=== PATIENT | male | born 1980 | race Caucasian/White ===

== ENCOUNTER 2020-09-25 15:27 | Observation (INO) ==
--- OUTSIDE RECORDS SUMMARY | 2020-09-25 15:38 | External Medical Summary | Continuity of Care Document ---
:1980 Author Name Jud Barlow, Provider Address Unavailable Unavailable , Care Team Providers Name Role Phone aMry Oconnell Unavailable [email or web address] MARY PARKER Unavailable Unavailable Problems Active medical history not documented Allergies and Adverse Reactions Allergy history not documented Medications Medications not documented Procedures Procedures not documented Immunizations Immunizations not documented Plan of Treatment Planned Observations Planned Goals not documented Results No Known Results Results not documented Encounters Appointment; Mary Parker CRNP 22-Feb-2018 9:45 Encounter Diagnosis: Problem not documented
[2020-09-25] MEDS ORDERED: KETOROLAC TROMETHAMINE 15 MG/ML VIAL ONE (16:23)
[2020-09-25] MEDS ORDERED: MoRPHine SULFATE 4 MG/ML 1 ML CARP\\VIAL ONE (16:23)
[2020-09-25] MEDS ORDERED: ONDANSETRON INJ 2 MG/ML 2 ML VIAL IV STA (17:26)
[2020-09-25] MEDS ORDERED: HYDROmorphone INJ 0.5 MG/0.5 ML SYR IV STA (17:26)
--- NOTE | 2020-09-25 17:32 | Emergency Department Note ---
ED Visit Note Differential Diagnosis includes but is not limited to ischemic Stroke, hemorrhagic stroke, bells palsy, mass, neoplasm, migraine he Differential diagnosis includes etiologies such as benign positional vertigo, dehydration, hypovolemia, anemia, tumor, infection, hypoglycemia, electrolyte abnormalities, cardiac sources, intracerebral event, toxicologic, neurological, as well as others were entertained. GENERAL: Sitting up in bed, alert, well appearing, well nourished, no distress, non-toxic EYE EXAM: normal conjunctiva. [PERRL and EOM's grossly intact.] OROPHARYNX: no exudate, no erythema, lips, buccal mucosa, and tongue normal and mucous membranes are moist NECK: supple, no nuchal rigidity, no adenopathy, non-tender LUNGS: Clear to auscultation. Normal chest wall mechanics HEART: no murmurs, S1 normal and S2 normal ABDOMEN: abdomen soft, non-tender, normo-active bowel sounds, no masses, no rebound or guarding. BACK: Back is symmetrical on inspection and there is no deformity, no midline tenderness, no CVA tenderness. SKIN: no rashes and no bruising UPPER EXTREMITIES: upper extremities are grossly normal. LOWER EXTREMITIES: No pitting edema. NEURO EXAM: Normal sensorium, cranial nerves II-XII [grossly] intact, normal speech, no [gross] weakness of arms, no [gross] weakness of legs. [No drift. Finger to nose intact. Gross sensation intact.]
[2020-09-25] MEDS ORDERED: MoRPHine SULFATE 4 MG/ML 1 ML CARP\\VIAL IV STA (18:23)
[2020-09-25 19:23] LABS: Alanine Aminotransferase 43 U/L (12-78); Albumin Globulin Ratio 1.3 (0.9-2); Albumin Level 4.8 gm/dl (3.4-5.0); Alkaline Phosphatase 53 U/L (45-117); Aspartate Aminotransferase 20 U/L (15-37); BUN Creatinine Ratio 12.7 (10-20); Blood Urea Nitrogen 20 mg/dl (7-18); Calcium 9.5 mg/dl (8.5-10.1); Carbon Dioxide 27 mmol/L (21-32); Chloride 99 mmol/L (98-107); Est GFR (African American) 63.9; Est GFR (Non-African American) 55.1; Globulin 3.7 gm/dl (2.5-4.0); Glucose 107 mg/dl (70-99); Lipase 90 U/L (73-393); Sodium 133 mmol/L (136-145); Total Protein 8.5 gm/dl (6.4-8.2)
[2020-09-25 19:47] LABS: Appearance Urine Clear (Clear); Bacteria Urine Automated Negative (Negative); Bilirubin Urine Negative (Negative); Blood Urine 3+ (Negative); Color Urine Yellow; Epithelial Cell Urine Auto 0-5 /lpf (0-5); Glucose Urine UA Negative (Negative); Ketones Urine 1+ (Negative); Leukocyte Esterase Urine Negative (Negative); Nitrite Urine Negative (Negative); Protein Urine 1+ (Negative); RBC Urine Automated >30 /hpf (0-4); Specific Gravity Urine 1.017 (1.000-1.030); Urobilinogen Urine Negative (Negative)
--- NOTE | 2020-09-25 19:50 | History & Physical Report ---
Date of Service September 25, 2020 Assessment & Plan (1) Renal colic on left side: (2) Hx of renal calculi: Patient has history significant for renal calculi, requiring urological procedures in the past History of cystinuria/cystine kidney stones Currently does not follow-up with any urologist, as did not have any issues more recently Did pass spontaneously renal stone about a month ago Today presents with emesis, with blood cell count of 19,000, creatinine elevated at 1.5 and significant pain in left lower abdominal quadrant/groin CT scan showing 7 mm left ureteral stone UA unremarkable, no bacteria no nitrites, positive for blood Patient denies any gross hematuria Antibiotics not started in the ED given UA without any bacteria Pt also has significant allergies to several antibiotics Pt does not have any fevers, chills, blood pressure is actually elevated, patient does not appear septic We will obtain urine culture Continue IV fluids, strain urine N.p.o. after midnight, routine urology consult tomorrow AM Discussed Flomax with the patient, at this time he is not interested in any new medications Pain management (3) ELYLN (generalized anxiety disorder): - cont. home buspar (4) Hypertension: - cont. amlodipine, hold losartan/HCTZ given JADA (elev. Cr) JADA Cr 1.5 Likely secondary to above/ renal stone Continue IV fluids, recheck BMP in the morning, try to avoid NSAIDs and any other nephrotoxic agents (5) Tobacco use: Patient says he quit smoking 1 week ago Currently using Chantix, will continue (6) Dyslipidemia: Hold home statin for now, if nausea resolves, plan to resume -plan to resume on discharge DVT ppx: SCDs Code: Full History of Present Illness Chief Complaint: left lower quadrant abd. pain, kidney stone Primary Care Provider: Gómez Narayanan MD Mr. Montoya is a 40-year-old gentleman with history of kidney stones, hypertension, ELLYN, tobacco use, who presents with left lower quadrant abdominal pain secondary to kidney stone. Patient states that he passed a kidney stone about a month ago, which was uneventful, however he has significant history of kidney stones, requiring procedures in the past. At this moment he reports he does not follow with urologist as he did not have any major issues more recently. Patient reports that usually if he passes a stone he feels better, and does not need to come to the hospital however he reports that when he starts to feel sick and throw up, that is when he needs to come in for further evaluation. Patient says that he was vomiting this afternoon. Labs obtained in the ED, shows creatinine of 1.5, white blood cell count of 19,000, UA unremarkable. CT showing 7 mm left ureteral stone. Patient was given IV fluids and pain medications in the ED. Given UA was unremarkable, antibiotics were not started. Patient also denies any fevers or chills, denies any difficulty with urination, denies any blood in the urine or cloudy pussy urine. Patient has significant allergies to multiple antibiotics with history of airway swelling. Patient has a history of tobacco use, however quit smoking about 1 week ago, reports this is his fifth trial, but doing better now on Chantix. Patient otherwise denies any difficulty breathing, shortness of breath, cough, chest pain. Allergies Allergy/AdvReac Type Severity Reaction Status Date / Time amoxicillin Allergy Unknown STOP Verified 09/25/20 18:04 BREATHING Bactrim Allergy Unknown STOP Verified 01/07/14 06:36 BREATHING cephalexin Allergy Unknown STOP Verified 09/25/20 18:04 BREATHING furosemide Allergy Unknown LISTED PER Verified 09/25/20 18:04 MD ORDER Penicillins Allergy Unknown RASH Verified 09/25/20 18:04 sulfamethoxazole Allergy Unknown STOP Verified 09/25/20 18:04 BREATHING trimethoprim Allergy Unknown STOP Verified 09/25/20 18:04 BREATHING vancomycin Allergy Unknown STOP Verified 09/25/20 18:04 BREATHING Home Medications Medication Instructions Recorded Confirmed Type amlodipine 10 mg PO PM #0 12/25/11 09/25/20 History acetaminophen [Tylenol Extra 1,500 mg PO Q6H PRN 09/25/20 09/25/20 History Strength] buspirone 10 mg PO BID 09/25/20 09/25/20 History gabapentin 300 mg PO TID 09/25/20 09/25/20 History lisinopril-hydrochlorothiazide 1 tab PO PM 09/25/20 09/25/20 History rosuvastatin 20 mg PO PM 09/25/20 09/25/20 History varenicline [Chantix Continuing 1 mg PO BID 09/25/20 09/25/20 History Month Box] Past Med/Surg History Medical History (Updated 09/25/20 @ 20:18 by Chinedu Ceballos MD) Cystinuria Degenerative disc disease, cervical Dyslipidemia Exostosis of femur ELLYN (generalized anxiety disorder) Hx of renal calculi Hypertension Irritable bowel syndrome (IBS) PFO (patent foramen ovale) Tobacco use Ureteral stent displacement Surgical History (Updated 09/25/20 @ 19:55 by Chinedu Ceballos MD) H/O arthroscopy of right knee H/O vasectomy Family History (Updated 09/25/20 @ 19:58 by Chinedu Ceballos MD) Mother Valvular heart disease Hypertension Lupus Father Hypertension Brother ADD (attention deficit disorder) Anxiety Social History (Updated 09/25/20 @ 19:47 by Chinedu Ceballos MD) Smoking Status: Former smoker Tobacco Type: Cigarettes Smoking End Date: quit 1 week ago 08/2020; Hx Alcohol Use: No Review of Systems Review of Systems: All systems reviewed & are unremarkable except as noted in HPI & below Constitutional: no fever and no chills Eyes: no problem reported Ear, Nose, Mouth, Throat: no problem reported Respiratory: no cough and no dyspnea Cardiovascular: no chest pain, no palpitations and no edema Gastrointestinal: + abdominal pain (left lower quadrant/ froin), + nausea and + vomiting; no diarrhea/loose stools Genitourinary: no dysuria Musculoskeletal: no problem reported Integumentary: no problem reported Neurologic: no problem reported Psychiatric: no problem reported Endocrine: no problem reported Hematologic / Lymphatic: no problem reported Allergy / Immunological: no problem reported Physical Exam Constitutional: WD/WN, vitals as above Eyes: PERRL, conjunctivae normal, anicteric sclerae ENMT: external ear and nose normal, oropharynx normal Neck: normal visual inspection Respiratory: normal respiratory effort, lungs clear to auscultation Cardiovascular: RRR, no murmur, no edema Chest (Breasts): Chest: normal inspection of chest Gastrointestinal (Abdomen): Inspection/Auscultation: abdomen normal to inspection and normal bowel sounds; no abdominal edema Percussion/Palpation: + abdomen tender (left lower quadrant) and abdomen soft; no guarding and abdomen not rigid Musculoskeletal: no cyanosis or clubbing, extremities motor strength 5/5 Head/Neck/Chest: normocephalic and head atraumatic Skin: no rashes, warm and dry Neurologic: PERRL, EOMI, accommodation nl, no face palsy, no dysarthria moves all extremities Psychiatric: A+Ox3, euthymic affect Genitourinary: no CVA tenderness Lymphatic: no lymphedema Results & Data Results & Data ([facility]) Vital Signs (Past 12 Hours) Vital Signs Pulse Resp BP Pulse Ox 09/25/20 19:04 80 18 170/112 H 98 Laboratory Results 09/25/20 09/25/20 09/25/20 Range/Units Unknown 16:26 16:26 WBC 19.85 H (4.8-10.8) K/uL RBC 5.44 (4.7-6.1) M/uL Hgb 17.3 (14.0-18.0) g/dL Hct 50.5 (42-52) % MCV 92.8 (80-100) fL MCH 31.8 (25-34) pg MCHC 34.3 (32-36) g/dL RDW Std Deviation 43.7 (36.4-46.3) fL RDW Coeff of Jose 12.9 (11.5-14.5) % Plt Count 279 (130-400) K/uL MPV 10.0 (7.4-10.4) fL Immature Gran % (Auto) 0.3 % Neut % (Auto) 88.5 % Lymph % (Auto) 6.1 % [place] % (Auto) 4.8 % Eos % (Auto) 0.2 % Baso % (Auto) 0.1 % Neut # (Auto) 17.57 H (1.4-6.5) K/uL Lymph # (Auto) 1.22 (1.2-3.4) K/uL [place] # (Auto) 0.95 H (0.11-0.59) K/uL Eos # (Auto) 0.04 (0-0.5) K/uL Baso # (Auto) 0.01 (0-0.2) K/uL Immature Gran # (Auto) 0.06 H (0.00-0.02) K/uL Sodium 133 L (136-145) mmol/L Potassium 4.0 (3.5-5.1) mmol/L Chloride 99 (98-107) mmol/L Carbon Dioxide 27 (21-32) mmol/L Anion Gap 7.0 (3-11) BUN 20 H (7-18) mg/dl Creatinine 1.57 H (0.6-1.4) mg/dl Est Cr Clr Drug Dosing Not Reportable Est GFR ( Amer) 63.9 Est GFR (Non-Af Amer) 55.1 BUN/Creatinine Ratio 12.7 (10-20) Glucose 107 H (70-99) mg/dl Calcium 9.5 (8.5-10.1) mg/dl Total Bilirubin 1.0 (0.2-1) mg/dl AST 20 (15-37) U/L ALT 43 (12-78) U/L Alkaline Phosphatase 53 (45-117) U/L Total Protein 8.5 H (6.4-8.2) gm/dl Albumin 4.8 (3.4-5.0) gm/dl Globulin 3.7 (2.5-4.0) gm/dl Albumin/Globulin Ratio 1.3 (0.9-2) Lipase 90 (73-393) U/L Urine Color Urine Appearance (Clear) Urine pH (4.5-7.5) Ur Specific [place] (1.000-1.030) Urine Protein (Negative) Urine Glucose (UA) (Negative) Urine Ketones (Negative) Urine Blood (Negative) Urine Nitrite (Negative) Urine Bilirubin (Negative) Urine Urobilinogen (Negative) Ur Leukocyte Esterase (Negative) Urine WBC (Auto) (0-5) /hpf Urine RBC (Auto) (0-4) /hpf U Hyaline Cast (Auto) (0-5) /lpf U Epithel Cells (Auto) (0-5) /lpf Urine Bacteria (Auto) (Negative) SARS-CoV-2 Ag (Rapid) Pending 09/25/20 Range/Units 16:26 WBC (4.8-10.8) K/uL RBC (4.7-6.1) M/uL Hgb (14.0-18.0) g/dL Hct (42-52) % MCV (80-100) fL MCH (25-34) pg MCHC (32-36) g/dL RDW Std Deviation (36.4-46.3) fL RDW Coeff of Jose (11.5-14.5) % Plt Count (130-400) K/uL MPV (7.4-10.4) fL Immature Gran % (Auto) % Neut % (Auto) % Lymph % (Auto) % [place] % (Auto) % Eos % (Auto) % Baso % (Auto) % Neut # (Auto) (1.4-6.5) K/uL Lymph # (Auto) (1.2-3.4) K/uL [place] # (Auto) (0.11-0.59) K/uL Eos # (Auto) (0-0.5) K/uL Baso # (Auto) (0-0.2) K/uL Immature Gran # (Auto) (0.00-0.02) K/uL Sodium (136-145) mmol/L Potassium (3.5-5.1) mmol/L Chloride (98-107) mmol/L Carbon Dioxide (21-32) mmol/L Anion Gap (3-11) BUN (7-18) mg/dl Creatinine (0.6-1.4) mg/dl Est Cr Clr Drug Dosing Est GFR ( Amer) Est GFR (Non-Af Amer) BUN/Creatinine Ratio (10-20) Glucose (70-99) mg/dl Calcium (8.5-10.1) mg/dl Total Bilirubin (0.2-1) mg/dl AST (15-37) U/L ALT (12-78) U/L Alkaline Phosphatase (45-117) U/L Total Protein (6.4-8.2) gm/dl Albumin (3.4-5.0) gm/dl Globulin (2.5-4.0) gm/dl Albumin/Globulin Ratio (0.9-2) Lipase (73-393) U/L Urine Color Yellow Urine Appearance Clear (Clear) Urine pH 7.0 (4.5-7.5) Ur Specific [place] 1.017 (1.000-1.030) Urine Protein 1+ H (Negative) Urine Glucose (UA) Negative (Negative) Urine Ketones 1+ H (Negative) Urine Blood 3+ H (Negative) Urine Nitrite Negative (Negative) Urine Bilirubin Negative (Negative) Urine Urobilinogen Negative (Negative) Ur Leukocyte Esterase Negative (Negative) Urine WBC (Auto) 1-5 (0-5) /hpf Urine RBC (Auto) >30 H (0-4) /hpf U Hyaline Cast (Auto) 1-5 (0-5) /lpf U Epithel Cells (Auto) 0-5 (0-5) /lpf Urine Bacteria (Auto) Negative (Negative) SARS-CoV-2 Ag (Rapid)
[2020-09-25 20:02] LABS: Basophils # (auto) 0.01 K/uL (0-0.2); Basophils % (auto) 0.1 %; Eosinophils # (auto) 0.04 K/uL (0-0.5); Eosinophils % (auto) 0.2 %; Hematocrit (blood only) 50.5 % (42-52); Hemoglobin 17.3 g/dL (14.0-18.0); Immature Granulocytes # (auto) 0.06 K/uL (0.00-0.02); Immature Granulocytes % (auto) 0.3 %; Lymphocytes # (auto) 1.22 K/uL (1.2-3.4); Lymphocytes % (auto) 6.1 %; Mean Corpuscular Hemoglobin 31.8 pg (25-34); Mean Corpuscular Hgb Conc 34.3 g/dL (32-36); Mean Corpuscular Volume 92.8 fL (80-100); Monocytes # (auto) 0.95 K/uL (0.11-0.59); Monocytes % (auto) 4.8 %; Neutrophils # (auto) 17.57 K/uL (1.4-6.5); Neutrophils % (auto) 88.5 %; Platelet Count 279 K/uL (130-400); RDW Coefficient of Variation 12.9 % (11.5-14.5); RDW Standard Deviation 43.7 fL (36.4-46.3); Red Blood Count 5.44 M/uL (4.7-6.1); White Blood Count 19.85 K/uL (4.8-10.8)
[2020-09-25] MEDS: MoRPHine SULFATE 4 MG/ML 1 ML CARP\\VIAL IV PRN ×2 (20:26→22:56)
[2020-09-25] MEDS ORDERED: TAMSULOSIN HCL 0.4 MG CAP PO SCH (21:00)
--- NOTE | 2020-09-25 21:06 | CT Scan Report ---
CT SCAN OF THE ABDOMEN AND PELVIS WITHOUT CONTRAST CLINICAL HISTORY: Left flank pain COMPARISON STUDY: No previous studies for comparison. TECHNIQUE: CT scan of the abdomen and pelvis was performed from the lung bases to the proximal femurs . Images are reviewed in the axial, sagittal, and coronal planes. IV contrast was not administered fo r this examination. A dose lowering technique was utilized adhering to the principles of ALARA. CT DOSE: FINDINGS: Lower chest: The heart is normal in size and configuration, without pericardial effusion. The lung ba ses and pleural spaces are clear. Liver: The unenhanced liver is normal in size, contour, and attenuation. There is no intrahepatic zaid iary ductal dilatation. Gallbladder: Unremarkable. Spleen: Normal in size and attenuation. Pancreas: Unremarkable. Adrenal glands: Unremarkable. Kidneys: There is bilateral nephrolithiasis. The left kidney appears edematous. There is left-sided h ydronephrosis. There is infiltration of the left-sided perinephric fat. There is left ureteral dilata tion. There is a 7 mm distal left ureteral calculus approximately 2 cm proximal to the left UVJ Bowel: There are no transition zones indicate bowel obstruction. There is no evidence of acute divert iculitis. There are no findings to indicate acute appendicitis. There are scattered metallic densitie s present within the colon. Peritoneum: There is no intraperitoneal free air or abdominal ascites. Vasculature: The abdominal aorta is normal in course and caliber. Adenopathy: None. Pelvic viscera: The bladder, and pelvic viscera are unremarkable. Skeletal structures: No destructive osseous lesions are seen. IMPRESSION: 1. Bilateral nephrolithiasis 2. Obstructing 7 mm distal left ureteral calculi 3. No evidence of bowel obstruction. No evidence of free air ACT 112: Negative or not required by law. Electronically signed by: Mikhail Conway M.D. 09/25/2020 4:52 PM
[2020-09-25] MEDS ORDERED: ACETAMINOPHEN 500 MG TAB PO PRN (21:12)
[2020-09-25] MEDS ORDERED: amLODIPine BESYLATE 5 MG TAB PO SCH (21:12)
[2020-09-25] MEDS: SODIUM CHLORIDE 0.9% 1000ML 1,000 ML IV SCH (21:21)
[2020-09-25] MEDS: ONDANSETRON INJ 2 MG/ML 2 ML VIAL IV PRN (22:57)
[2020-09-25] MEDS: busPIRone 5 MG TAB PO SCH (22:59)
[2020-09-25] MEDS: VARENICLINE 1 MG TAB PO SCH (23:00)
[2020-09-25] MEDS: GABAPENTIN 300 MG CAP PO SCH (23:00)
[2020-09-26] MEDS: MoRPHine SULFATE 4 MG/ML 1 ML CARP\\VIAL IV PRN ×3 (01:51→07:49)
[2020-09-26] MEDS: ONDANSETRON INJ 2 MG/ML 2 ML VIAL IV PRN (04:30)
[2020-09-26] MEDS: SODIUM CHLORIDE 0.9% 1000ML 1,000 ML IV SCH (04:55)
[2020-09-26 06:48] LABS: Hematocrit (blood only) 47.7 % (42-52); Hemoglobin 16.2 g/dL (14.0-18.0); Mean Corpuscular Hemoglobin 31.5 pg (25-34); Mean Corpuscular Volume 92.8 fL (80-100); Mean Platelet Volume 10.1 fL (7.4-10.4); Platelet Count 256 K/uL (130-400); RDW Standard Deviation 44.7 fL (36.4-46.3); Red Blood Count 5.14 M/uL (4.7-6.1); White Blood Count 14.52 K/uL (4.8-10.8)
[2020-09-26 07:14] LABS: BUN Creatinine Ratio 10.4 (10-20); Blood Urea Nitrogen 20 mg/dl (7-18); Calcium 8.6 mg/dl (8.5-10.1); Carbon Dioxide 24 mmol/L (21-32); Chloride 102 mmol/L (98-107); Est GFR (African American) 49.1; Est GFR (Non-African American) 42.4; Glucose 104 mg/dl (70-99); Potassium 4.2 mmol/L (3.5-5.1); Sodium 133 mmol/L (136-145)
[2020-09-26] MEDS ORDERED: METOCLOPRAMIDE HCL INJ 5 MG/ML 2 ML VIAL IV PRN (07:55)
[2020-09-26] MEDS: VARENICLINE 1 MG TAB PO SCH (08:24)
[2020-09-26] MEDS: GABAPENTIN 300 MG CAP PO SCH ×2 (08:24→14:42)
[2020-09-26] MEDS: busPIRone 5 MG TAB PO SCH (08:24)
--- NOTE | 2020-09-26 09:14 | Anesthesiology Consultation ---
Date of Service September 26, 2020 Assessment & Plan Chart Review Chart Review: Acceptable Risk for Surgery Consults Requested none ASA ASA2 Proposed Anesthesia Anesthesia Type: General (b/u) and MAC Risk / Benefits Reviewed With: PT / POA / Parent / Guardian, Accepts Plan and Informed Consent Obtained History Surgery Operation Date: 09/26/20 10:45 Proposed Procedures p Cystoscopy(Left) - Sandoval Miramontes MD s Ureteral Stent Insertion/Removal - Sandoval Miramontes MD Height/Weight Weight: 81.2 kg Allergies Allergy/AdvReac Type Severity Reaction Status Date / Time amoxicillin Allergy Unknown STOP Verified 09/25/20 18:04 BREATHING Bactrim Allergy Unknown STOP Verified 01/07/14 06:36 BREATHING cephalexin Allergy Unknown STOP Verified 09/25/20 18:04 BREATHING furosemide Allergy Unknown LISTED PER Verified 09/25/20 18:04 MD ORDER Penicillins Allergy Unknown RASH Verified 09/25/20 18:04 sulfamethoxazole Allergy Unknown STOP Verified 09/25/20 18:04 BREATHING trimethoprim Allergy Unknown STOP Verified 09/25/20 18:04 BREATHING vancomycin Allergy Unknown STOP Verified 09/25/20 18:04 BREATHING Medications Home Medications Medication Instructions Recorded Confirmed Last Taken amlodipine 10 mg PO PM #0 12/25/11 09/25/20 09/25/20 acetaminophen [Tylenol Extra 1,500 mg PO Q6H PRN 09/25/20 09/25/20 09/25/20 Strength] 1500 mg buspirone 10 mg PO BID 09/25/20 09/25/20 09/25/20 gabapentin 300 mg PO TID 09/25/20 09/25/20 09/25/20 lisinopril-hydrochlorothiazide 1 tab PO PM 09/25/20 09/25/20 09/25/20 rosuvastatin 20 mg PO PM 09/25/20 09/25/20 09/24/20 varenicline [Chantix Continuing 1 mg PO BID 09/25/20 09/25/20 09/25/20 Month Box] Active Medications Generic Name Dose Route Start Last Admin Trade Name Freq PRN Reason Stop Dose Admin Acetaminophen 1,000 mg 09/25/20 21:12 09/25/20 22:19 Acetaminophen 500 Mg Tab PO 10/25/20 21:11 1,000 mg Q6H PRN Administration Pain Amlodipine Besylate 10 mg 09/25/20 21:12 09/25/20 22:59 Amlodipine Besylate 5 Mg Tab PO 10/25/20 21:11 10 mg PM EUSEBIO Administration Buspirone HCl 10 mg 09/25/20 21:12 09/26/20 08:24 Buspirone 5 Mg Tab PO 10/25/20 21:11 10 mg BID EUSEBIO Administration Gabapentin 300 mg 09/25/20 21:12 09/26/20 08:24 Gabapentin 300 Mg Cap PO 10/25/20 21:11 300 mg TID EUSEBIO Administration Sodium Chloride 1,000 mls @ 125 mls/hr 09/25/20 19:00 09/26/20 04:55 Nss 1000ml IV 10/25/20 18:59 125 mls/hr .Q8H EUSEBIO Administration Metoclopramide HCl 10 mg 09/26/20 07:55 09/26/20 08:24 Metoclopramide Hcl Inj 5 Mg/Ml 2 Ml Vial IV 10/26/20 07:54 10 mg Q6H PRN Administration Nausea Morphine Sulfate 3 mg 09/25/20 20:10 09/26/20 07:49 Morphine Sulfate 4 Mg/Ml 1 Ml Carp\Vial IV 10/09/20 20:09 3 mg Q3H PRN Administration Pain Ondansetron HCl 4 mg 09/25/20 21:25 09/26/20 04:30 Ondansetron Inj 2 Mg/Ml 2 Ml Vial IV 10/25/20 21:24 4 mg Q6H PRN Administration Nausea Varenicline 1 mg 09/25/20 21:12 09/26/20 08:24 Varenicline 1 Mg Tab PO 10/25/20 21:11 1 mg BID EUSEBIO Administration NPO Date Last Intake of Fluids: 09/26/20 Time Last Intake of Fluids: 00:00 Date Last Intake of Solids: 09/26/20 Time Last Intake of Solids: 00:00 Past Medical History Medical History Cystinuria Degenerative disc disease, cervical Dyslipidemia Exostosis of femur ELLYN (generalized anxiety disorder) Hx of renal calculi Hypertension Irritable bowel syndrome (IBS) PFO (patent foramen ovale) Tobacco use Ureteral stent displacement Exercise / Class Metabolic Activity II 4-5 Yardwork/Stairs/Walk up hill Past Family History Family History Mother Valvular heart disease Hypertension Lupus Father Hypertension Brother ADD (attention deficit disorder) Anxiety Past Surgical History Surgical History H/O arthroscopy of right knee H/O vasectomy Past Anesthesia History No Hx of Anesthesia Complications and No Family Hx of Anesthesia Complications History of PONV No Hx of PONV and No Hx of Motion Sickness Social History Smoking Status: Former smoker tobacco type: cigarettes Smoking cigarettes per day: 5 Do You Dip or Chew Tobacco: No Smoking End Date: 09/16 Hx Alcohol Use: Yes Alcohol type: beer and hard liquor alcohol intake frequency: holidays/special occasions only Hx Substance Use: Yes substance use type: does not use Physical Exam Vital Signs Last Vital Signs Temp 36.7 C 09/26/20 07:43 Pulse 118 H 09/26/20 07:43 Resp 20 09/26/20 07:43 BP 166/99 H 09/26/20 07:43 Pulse Ox 92 09/26/20 07:43 ENMT Mouth: no TMJ abnormality Thyromental Distance: > or= 3.5 Finger Breadths Mallampati Class: II Neck normal visual inspection and trachea midline; neck extension not limited Respiratory normal respiratory effort Auscultation: lungs clear to auscultation bilaterally Cardiovascular Rate/Rhythm: regular rate and regular rhythm Heart Sounds: no murmur Musculoskeletal Spine: normal cervical ROM Extremities: full ROM of extremities Neurologic moves all extremities Psychiatric Orientation: alert and oriented x 3 Testing Laboratory Results 09/26/20 06:04 09/26/20 06:04 Urine Color Yellow 09/25/20 16:26 Urine Appearance Clear (Clear) 09/25/20 16:26 Urine pH 7.0 (4.5-7.5) 09/25/20 16:26 Ur Specific [place] 1.017 (1.000-1.030) 09/25/20 16:26 Urine Protein 1+ (Negative) H 09/25/20 16:26 Urine Glucose (UA) Negative (Negative) 09/25/20 16:26 Urine Ketones 1+ (Negative) H 09/25/20 16:26 Urine Nitrite Negative (Negative) 09/25/20 16:26 Ur Leukocyte Esterase Negative (Negative) 09/25/20 16:26 Urine WBC (Auto) 1-5 /hpf (0-5) 09/25/20 16:26 Urine RBC (Auto) >30 /hpf (0-4) H 09/25/20 16:26 U Hyaline Cast (Auto) 1-5 /lpf (0-5) 09/25/20 16:26 U Epithel Cells (Auto) 0-5 /lpf (0-5) 09/25/20 16:26 Urine Bacteria (Auto) Negative (Negative) 09/25/20 16:26 09/25/20 COVID Ag neg no COVID Ab test on record----ordered stat
--- NOTE | 2020-09-26 09:35 | Urology Consultation ---
Date of Consultation September 26, 2020 Assessment & Plan (1) Renal colic on left side: Obstructing left distal ureteral calculushistory of cystine stones Acutely ill right now Plan for emergent cystoscopy left ureteral stent placement We will have to treat the stone at a later time History of Present Illness Attending Physician: Zia Chowdhury MD History of Present Illness 40-year-old gentleman with a long history of cystine stones who presented through the emergency room overnight with severe left flank pain CT at that time reveals a hydronephrotic and inflamed left kidney with a distal left ureteral calculus. There are other calculi in both kidneys Creatinine has risen from 1.5-2.0 today He can remains symptomatic No current nausea but he was nauseated earlier He has had a long history of kidney [place]pre[place] but has not seen a urologist in 5+ [place]scurrently lives in [place] No other major medical issues Allergies Allergy/AdvReac Type Severity Reaction Status Date / Time amoxicillin Allergy Unknown STOP Verified 09/25/20 18:04 BREATHING Bactrim Allergy Unknown STOP Verified 01/07/14 06:36 BREATHING cephalexin Allergy Unknown STOP Verified 09/25/20 18:04 BREATHING furosemide Allergy Unknown LISTED PER Verified 09/25/20 18:04 MD ORDER Penicillins Allergy Unknown RASH Verified 09/25/20 18:04 sulfamethoxazole Allergy Unknown STOP Verified 09/25/20 18:04 BREATHING trimethoprim Allergy Unknown STOP Verified 09/25/20 18:04 BREATHING vancomycin Allergy Unknown STOP Verified 09/25/20 18:04 BREATHING Home Medications Medication Instructions Recorded Confirmed Type amlodipine 10 mg PO PM #0 12/25/11 09/25/20 History acetaminophen [Tylenol Extra 1,500 mg PO Q6H PRN 09/25/20 09/25/20 History Strength] buspirone 10 mg PO BID 09/25/20 09/25/20 History gabapentin 300 mg PO TID 09/25/20 09/25/20 History lisinopril-hydrochlorothiazide 1 tab PO PM 09/25/20 09/25/20 History rosuvastatin 20 mg PO PM 09/25/20 09/25/20 History varenicline [Chantix Continuing 1 mg PO BID 09/25/20 09/25/20 History Month Box] Patient History Medical History Cystinuria Degenerative disc disease, cervical Dyslipidemia Exostosis of femur ELLYN (generalized anxiety disorder) Hx of renal calculi Hypertension Irritable bowel syndrome (IBS) PFO (patent foramen ovale) Tobacco use Ureteral stent displacement Surgical History H/O arthroscopy of right knee H/O vasectomy Family History Mother Valvular heart disease Hypertension Lupus Father Hypertension Brother ADD (attention deficit disorder) Anxiety Social History Smoking Status: Former smoker Tobacco Type: Cigarettes Cigarettes Per Day: 5; Smoking End Date: 09/16; Second Hand Exposure: Yes; Do You Dip or Chew Tobacco: No; Tobacco Cessation Education Requested by Patient: No Hx Alcohol Use: Yes Alcohol type: beer and hard liquor Hx Substance Use: Yes Current Living Situation: Spouse Feels Safe at Home: Yes Safety Concerns: Feels Safe At This Time Assistive Devices: None Review of Systems Constitutional: no fever, no chills and no fatigue Eyes: no worsening vision Ear, Nose, Mouth, Throat: no facial pain and no pain with swallowing Respiratory: no cough and no dyspnea Cardiovascular: no chest pain and no palpitations Gastrointestinal: no abdominal pain, no nausea and no vomiting Musculoskeletal: no back pain Integumentary: no rash and no urticaria Neurologic: no gait abnormality and no unsteadiness Psychiatric: no behavioral changes and no depression Endocrine: no fatigue Physical Exam Constitutional: well developed and well nourished Neck: neck nontender Respiratory: normal respiratory effort; no respiratory distress and does not use accessory muscles Cardiovascular: Rate/Rhythm: + tachycardic (Hypertensive) Vessels: radial pulses present Extremities: no edema Gastrointestinal (Abdomen): Inspection/Auscultation: abdomen normal to inspection Percussion/Palpation: abdomen soft; abdomen nontender and no guarding Musculoskeletal: Head/Neck/Chest: normocephalic and head atraumatic Extremities: extremities normal to inspection Skin: no rashes and no lesions Trauma: no evidence of skin trauma Neurologic: awake; not obtunded Speech / Cognition: normal speech Motor/Sensory: no tremor Psychiatric: Orientation: alert and oriented x 3 Genitourinary: no CVA tenderness Lymphatic: no lymphadenopathy Results & Data ([facility]) Vital Signs (Past 12 Hours) Vital Signs Temp Pulse Resp BP Pulse Ox 09/26/20 07:43 36.7 C 118 H 20 166/99 H 92 09/25/20 23:35 36.7 C 98 H 16 138/88 94 PG Care Time/CCT Total # of Minutes Spent Total Time Spent with Patient: Total time spent is greater than 50% in coordination of care (as documented) at patient's floor/unit and/or counseling patient: Coding Level of Care Code 24563 Inpt Consult Level 4 Diagnoses Renal colic on left side N23
[2020-09-26] MEDS ORDERED: MoRPHine SULFATE 10 MG/ML CARP/VIAL IV PRN (10:02)
[2020-09-26] MEDS ORDERED: MEPERIDINE HCL 25 MG/ML CARP/VIAL IV PRN (10:02)
[2020-09-26] MEDS ORDERED: ONDANSETRON INJ 2 MG/ML 2 ML VIAL IV PRN (10:02)
[2020-09-26] MEDS ORDERED: fentaNYL citrate 100 MCG/2 ML VIAL IV PRN (10:02)
[2020-09-26] MEDS ORDERED: ePHEDrine sulfate 50 MG/ML AMP IV PRN (10:02)
[2020-09-26] MEDS ORDERED: ATROPINE SULFATE 0.1 MG/ML 10ML SYR IV PRN (10:02)
[2020-09-26] MEDS ORDERED: CIPROFLOXACIN 400MG / 200ML D5W IV ONE (10:31)
[2020-09-26] MEDS ORDERED: LIDOCAINE 2% 20 MG/ML 5 ML SYR IV ONE (10:45)
[2020-09-26] MEDS ORDERED: PROPOFOL IV EMULSION 10 MG/ML 20 ML VIAL IV ONE (10:45)
[2020-09-26] MEDS ORDERED: ONDANSETRON INJ 2 MG/ML 2 ML VIAL ONE (10:45)
[2020-09-26] MEDS ORDERED: fentaNYL citrate 100 MCG/2 ML VIAL ONE (10:46)
[2020-09-26] MEDS ORDERED: MIDAZOLAM HCL 1 MG/ML 2ML VIAL ONE (10:46)
--- NOTE | 2020-09-26 11:00 | Operative Report ---
PG Post Operative Report Pre & Post Diagnosis Operation Date: 09/26/20 10:45 Pre-Op Diagnosis: Renal colic on left side, obstructing left distal ureteral calculushistory of cystine stones Post-Op Diagnosis: Renal colic on left side, obstructing left distal ureteral calculushistory of cystine stones I identified the patient and participated in the time-out.: Yes Procedure Operation Date: 09/26/20 10:45 Actual Procedures p Cystoscopy(Left) - Sandoval Miramontes MD s Cystoscopy, Left stent insertion - Sandoval iMramontes MD Surgeon Terrell Miramontes MD Marketing Manager none Estimated Blood Loss 0 Findings Consistent with Post-Op Diagnosis Specimens none Description of Procedure The patient was identified in the preoperative holding area, appropriate informed consents were reviewed and completed and the patient was transferred to the operative suite. Upon arrival, appropriate antibiotics and anesthesia were administered and the patient was placed in dorsal lithotomy position and prepped and draped in sterile fashion. Begin the case to pass a 22 Icelandic cystoscope with 30 degree lens. Inspection revealed a healthy-appearing urethra, small prostate as would be expected for age. Bladder was healthy in appearance with ureteral orifices in orthotopic position. I turned my attention of the left UO and cannulated with a sensor wire and a 5 [place]ic open-ended catheter. There was resistance in the distal ureter but I was able to navigate beyond this with a wire. Immediately after bypassing the stone with the wire there is a discharge of clear urine from the kidney. It continues to drain throughout the remainder of the procedure. I placed a 6 Icelandic by 26 cm looped ureteral stent seeing a good curl in the kidney as well as the bladder. The case was subsequently concluded and he was reversed from anesthesia and taken to the PACU in stable condition. There were no complications. I attest to the content of the Intraoperative Record and any orders documented therein. Any exceptions are noted below.
--- NOTE | 2020-09-26 11:17 | Fluoroscopy Report ---
FL KUB CLINICAL HISTORY: LT SIDE STONE COMPARISON STUDY: CT of the abdomen and pelvis September 25, 2020. FLUOROSCOPY TIME: 2.7 seconds. FLUOROSCOPIC IMAGES: 1 FINDINGS: Fluoroscopy was provided during left retrograde exam. Proximal aspect of the stent projects over the left renal pelvis. IMPRESSION: Fluoroscopy provided during left retrograde exam with ureteral stent insertion. ACT 112: Negative or not required by law. Electronically signed by: Ryan Elmore M.D. 09/26/2020 11:16 AM
--- NOTE | 2020-09-26 11:21 | Anesthesiology Progress Note ---
Date of Service September 26, 2020 Anesthesia Post Procedure Vital Signs Vital Signs: Temp Pulse Resp BP BP Pulse Ox 09/26/20 11:15 37.0 C 99 H 15 125/85 94 09/26/20 11:05 98 H 12 138/81 99 09/26/20 10:56 37.0 C 95 H 13 131/77 94 09/26/20 07:43 36.7 C 118 H 20 166/99 H 92 09/25/20 23:35 36.7 C 98 H 16 138/88 94 09/25/20 20:13 36.6 C 103 H 17 161/109 H 98 09/25/20 19:48 79 18 160/110 H 97 09/25/20 19:04 80 18 170/112 H 98 Pain Intensity Left Flank: Pain Intensity: 8 Transfer of Care Handoff Completed per policy Notes Mental Status: alert / awake / arousable and participated in evaluation Patient Amnestic to Procedure: Yes Nausea / Vomiting: adequately controlled Pain: adequately controlled Airway Patency, RR, SpO2: stable & adequate BP & HR: stable & adequate Hydration State: stable & adequate Anesthetic Complications: no major complications apparent and Pt Satisfied with anesthetic care
--- NOTE | 2020-09-26 17:44 | Hospitalist Progress Note ---
Date of Service September 26, 2020 Assessment & Plan (1) Renal colic on left side: (2) Hx of renal calculi: Left ureteral stone with obstructive uropathy Admitting service notes: Patient has history significant for renal calculi, requiring urological procedures in the past History of cystinuria/cystine kidney stones presents with emesis, with blood cell count of 19,000, creatinine elevated at 1.5 and significant pain in left lower abdominal quadrant/groin Pt does not have any fevers, chills, blood pressure is actually elevated, patient does not appear septic CT abdomen/pelvis: 1. Bilateral nephrolithiasis 2. Obstructing 7 mm distal left ureteral calculi 3. No evidence of bowel obstruction. No evidence of free air UA unremarkable, no bacteria no nitrites, positive for blood Urine culture: Pending 09/26/2020 Status post cystoscopy with left ureteral stent placement Cleared for discharge by urologist Dr. Miramontes Discharged on: Ciprofloxacin 500 mg twice daily [place] Follow-up with Dr. Miramontes in 1 to 2 weeks Follow-up final urine culture results Obstructive uropathy Acute kidney injury Creatinine 1.5, 1.9 on discharge day No problems with urination Hold lisinopril/hydrochlorothiazide, replace with hydralazine 25 mg p.o. twice daily temporarily Repeat BMP on follow-up with PCP this week, resume lisinopril/HCTZ when kidney function is back to baseline (3) ELLYN (generalized anxiety disorder): - cont. home buspar (4) Hypertension: - cont. amlodipine, hold lisinopril/HCTZ given JADA (elev. Cr) -Management per above (5) Tobacco use: Currently using Chantix (6) Dyslipidemia: Hold home statin for now, if nausea resolves, plan to resume -plan to resume on discharge Disposition Discharge to home Follow-up with PCP Follow-up with urologist in 1 to 2 weeks Admission and Anticipated Discharge Date Admission Date: September 25, 2020 Subjective Follow-up for left ureteral stone, obstructive uropathy Seen status post cystoscopy with left ureteral stent placement Patient sitting up in bed, comfortable, not in distress States he feels much better overall Denies back, flank and abdominal pain Has intermittent pink-tinged urine but no dysuria Nausea from this morning has resolved Tolerated lunch well Denies headache, dizziness, chest pain, shortness of breath No other symptoms States that he is ready and like to be discharged today Review of Systems Review of Systems: All systems reviewed & are unremarkable except as noted in Subjective Physical Exam Physical Exam: General- oriented x 3, not in distress, speaks in sentences with no effort or accessory muscle use Head- atraumatic Eyes- PERRL, EOMI, anicteric ENT- oropharynx clear Neck- supple, no JVD, no adenopathy, no thyromegaly; carotids +2/2, no bruits appreciated Lungs- clear to auscultation bilaterally, no rales/wheezes Heart- normal rate, regular rhythm; no murmur, no gallop, no rub appreciated Abdomen- normal bowel sounds, nondistended, soft, nontender, no masses or hepatosplenomegaly, no CVA tenderness Extremities- no pretibial edema, no calf tenderness; peripheral pulses intact Neuro- alert, oriented x 3; CN 2-12 grossly intact; motor 5/5 bilaterally;sensation 100% on all extremities; no other gross focal neurologic deficits Skin- warm & dry Results & Data Results & Data ([facility]) Vital Signs (Past 12 Hours) Vital Signs Temp Pulse Pulse Resp BP BP Pulse Ox 09/26/20 15:09 36.7 C 99 H 104 H 20 116/77 125/85 92 09/26/20 14:53 36.7 C 104 H 20 116/77 92 09/26/20 12:30 36.7 C 99 H 20 148/98 H 92 09/26/20 12:00 36.4 C L 97 H 20 131/87 93 09/26/20 11:30 36.9 C 93 H 129/84 93 09/26/20 11:15 37.0 C 99 H 15 125/85 94 09/26/20 11:05 98 H 12 138/81 99 09/26/20 10:56 37.0 C 95 H 13 131/77 94 09/26/20 07:43 36.7 C 118 H 20 166/99 H 92 Laboratory Results Laboratory Results - last 24 hr 09/25/20 09/25/20 09/25/20 16:26 16:26 16:26 WBC 19.85 H RBC 5.44 Hgb 17.3 Hct 50.5 MCV 92.8 MCH 31.8 MCHC 34.3 RDW Std Deviation 43.7 RDW Coeff of Jose 12.9 Plt Count 279 MPV 10.0 Immature Gran % (Auto) 0.3 Neut % (Auto) 88.5 Lymph % (Auto) 6.1 [place] % (Auto) 4.8 Eos % (Auto) 0.2 Baso % (Auto) 0.1 Neut # (Auto) 17.57 H Lymph # (Auto) 1.22 Kimball # (Auto) 0.95 H Eos # (Auto) 0.04 Baso # (Auto) 0.01 Immature Gran # (Auto) 0.06 H Sodium 133 L Potassium 4.0 Chloride 99 Carbon Dioxide 27 Anion Gap 7.0 BUN 20 H Creatinine 1.57 H Est Cr Clr Drug Dosing Not Reportable Est GFR ( Amer) 63.9 Est GFR (Non-Af Amer) 55.1 BUN/Creatinine Ratio 12.7 Glucose 107 H Calcium 9.5 Total Bilirubin 1.0 AST 20 ALT 43 Alkaline Phosphatase 53 Total Protein 8.5 H Albumin 4.8 Globulin 3.7 Albumin/Globulin Ratio 1.3 Lipase 90 Urine Color Yellow Urine Appearance Clear Urine pH 7.0 Ur Specific [place] 1.017 Urine Protein 1+ H Urine Glucose (UA) Negative Urine Ketones 1+ H Urine Blood 3+ H Urine Nitrite Negative Urine Bilirubin Negative Urine Urobilinogen Negative Ur Leukocyte Esterase Negative Urine WBC (Auto) 1-5 Urine RBC (Auto) >30 H U Hyaline Cast (Auto) 1-5 U Epithel Cells (Auto) 0-5 Urine Bacteria (Auto) Negative COVID-19 Eval Order SARS-CoV-2, RNA, NAAT SARS-CoV-2 Ag (Rapid) 09/25/20 09/26/20 09/26/20 Unknown 06:04 06:04 WBC 14.52 H RBC 5.14 Hgb 16.2 Hct 47.7 MCV 92.8 MCH 31.5 MCHC 34.0 RDW Std Deviation 44.7 RDW Coeff of Jose 13.0 Plt Count 256 MPV 10.1 Immature Gran % (Auto) Neut % (Auto) Lymph % (Auto) Kimball % (Auto) Eos % (Auto) Baso % (Auto) Neut # (Auto) Lymph # (Auto) Kimball # (Auto) Eos # (Auto) Baso # (Auto) Immature Gran # (Auto) Sodium 133 L Potassium 4.2 Chloride 102 Carbon Dioxide 24 Anion Gap 7.0 BUN 20 H Creatinine 1.95 H D Est Cr Clr Drug Dosing Not Reportable Est GFR ( Amer) 49.1 Est GFR (Non-Af Amer) 42.4 BUN/Creatinine Ratio 10.4 Glucose 104 H Calcium 8.6 Total Bilirubin AST ALT Alkaline Phosphatase Total Protein Albumin Globulin Albumin/Globulin Ratio Lipase Urine Color Urine Appearance Urine pH Ur Specific [place] Urine Protein Urine Glucose (UA) Urine Ketones Urine Blood Urine Nitrite Urine Bilirubin Urine Urobilinogen Ur Leukocyte Esterase Urine WBC (Auto) Urine RBC (Auto) U Hyaline Cast (Auto) U Epithel Cells (Auto) Urine Bacteria (Auto) COVID-19 Eval Order SARS-CoV-2, RNA, NAAT SARS-CoV-2 Ag (Rapid) Negative 09/26/20 09/26/20 09:27 09:27 WBC RBC Hgb Hct MCV MCH MCHC RDW Std Deviation RDW Coeff of Jose Plt Count MPV Immature Gran % (Auto) Neut % (Auto) Lymph % (Auto) [place] % (Auto) Eos % (Auto) Baso % (Auto) Neut # (Auto) Lymph # (Auto) Kimball # (Auto) Eos # (Auto) Baso # (Auto) Immature Gran # (Auto) Sodium Potassium Chloride Carbon Dioxide Anion Gap BUN Creatinine Est Cr Clr Drug Dosing Est GFR ( Amer) Est GFR (Non-Af Amer) BUN/Creatinine Ratio Glucose Calcium Total Bilirubin AST ALT Alkaline Phosphatase Total Protein Albumin Globulin Albumin/Globulin Ratio Lipase Urine Color Urine Appearance Urine pH Ur Specific [place] Urine Protein Urine Glucose (UA) Urine Ketones Urine Blood Urine Nitrite Urine Bilirubin Urine Urobilinogen Ur Leukocyte Esterase Urine WBC (Auto) Urine RBC (Auto) U Hyaline Cast (Auto) U Epithel Cells (Auto) Urine Bacteria (Auto) COVID-19 Eval [facility] SARS-CoV-2, RNA, NAAT NEGATIVE SARS-CoV-2 Ag (Rapid)
--- NOTE | 2020-09-26 19:20 | Discharge Summary ---
Date of Service September 26, 2020 Admission HPI Per Admitting Provider Mr. Montoya is a 40-year-old gentleman with history of kidney stones, hypertension, ELLYN, tobacco use, who presents with left lower quadrant abdominal pain secondary to kidney stone. Patient states that he passed a kidney stone about a month ago, which was uneventful, however he has significant history of kidney stones, requiring procedures in the past. At this moment he reports he does not follow with urologist as he did not have any major issues more recently. Patient reports that usually if he passes a stone he feels better, and does not need to come to the hospital however he reports that when he starts to feel sick and throw up, that is when he needs to come in for further evaluation. Patient says that he was vomiting this afternoon. Labs obtained in the ED, shows creatinine of 1.5, white blood cell count of 19,000, UA unremarkable. CT showing 7 mm left ureteral stone. Patient was given IV fluids and pain medications in the ED. Given UA was unremarkable, antibiotics were not started. Patient also denies any fevers or chills, denies any difficulty with urination, denies any blood in the urine or cloudy pussy urine. Patient has significant allergies to multiple antibiotics with history of airway swelling. Patient has a history of tobacco use, however quit smoking about 1 week ago, reports this is his fifth trial, but doing better now on Chantix. Patient otherwise denies any difficulty breathing, shortness of breath, cough, chest pain. Admission Exam Per Admitting Provider Constitutional: WD/WN, vitals as above Eyes: PERRL, conjunctivae normal, anicteric sclerae ENMT: external ear and nose normal, oropharynx normal Neck: normal visual inspection Respiratory: normal respiratory effort, lungs clear to auscultation Cardiovascular: RRR, no murmur, no edema Chest (Breasts): Chest: normal inspection of chest Gastrointestinal (Abdomen): Inspection/Auscultation: abdomen normal to inspection and normal bowel sounds; no abdominal edema Percussion/Palpation: + abdomen tender (left lower quadrant) and abdomen soft; no guarding and abdomen not rigid Musculoskeletal: no cyanosis or clubbing, extremities motor strength 5/5 Head/Neck/Chest: normocephalic and head atraumatic Skin: no rashes, warm and dry Neurologic: PERRL, EOMI, accommodation nl, no face palsy, no dysarthria moves all extremities Psychiatric: A+Ox3, euthymic affect Genitourinary: no CVA tenderness Lymphatic: no lymphedema Principal Diagnosis Left ureteral stone, status post stent placement; struct of uropathy Discharge Exam General- oriented x 3, not in distress, speaks in sentences with no effort or accessory muscle use Head- atraumatic Eyes- PERRL, EOMI, anicteric ENT- oropharynx clear Neck- supple, no JVD, no adenopathy, no thyromegaly; carotids +2/2, no bruits appreciated Lungs- clear to auscultation bilaterally, no rales/wheezes Heart- normal rate, regular rhythm; no murmur, no gallop, no rub appreciated Abdomen- normal bowel sounds, nondistended, soft, nontender, no masses or hep atosplenomegaly, no CVA tenderness Extremities- no pretibial edema, no calf tenderness; peripheral pulses intact Neuro- alert, oriented x 3; CN 2-12 grossly intact; motor 5/5 bilaterally;sensation 100% on all extremities; no other gross focal neurologic deficits Skin- warm & dry Discharge Data Allergies Allergy/AdvReac Type Severity Reaction Status Date / Time amoxicillin Allergy Unknown STOP Verified 09/25/20 18:04 BREATHING Bactrim Allergy Unknown STOP Verified 01/07/14 06:36 BREATHING cephalexin Allergy Unknown STOP Verified 09/25/20 18:04 BREATHING furosemide Allergy Unknown LISTED PER Verified 09/25/20 18:04 ORDER Penicillins Allergy Unknown RASH Verified 09/25/20 18:04 sulfamethoxazole Allergy Unknown STOP Verified 09/25/20 18:04 BREATHING trimethoprim Allergy Unknown STOP Verified 09/25/20 18:04 BREATHING vancomycin Allergy Unknown STOP Verified 09/25/20 18:04 BREATHING Consultations 09/25/20 18:23 ED Decision to Admit Stat 09/26/20 08:00 Consult Urology Routine Procedures Performed Operation Date: 09/26/20 10:45 Actual Procedures p Cystoscopy(Left) - Sandoval Miramontes MD s Cystoscopy, Left stent insertion - Sandoval Miramontes MD Ordered Studies 09/25/20 CT abd pelvis wo con Routine Lower chest: The heart is normal in size and configuration, without pericardial effusion. The lung bases and pleural spaces are clear. Liver: The unenhanced liver is normal in size, contour, and attenuation. There is no intrahepatic biliary ductal dilatation. Gallbladder: Unremarkable. Spleen: Normal in size and attenuation. Pancreas: Unremarkable. Adrenal glands: Unremarkable. Kidneys: There is bilateral nephrolithiasis. The left kidney appears edematous. There is left-sided hydronephrosis. There is infiltration of the left-sided perinephric fat. There is left ureteral dilatation. There is a 7 mm distal left ureteral calculus approximately 2 cm proximal to the left UVJ Bowel: There are no transition zones indicate bowel obstruction. There is no evidence of acute diverticulitis. There are no findings to indicate acute appendicitis. There are scattered metallic densities present within the colon. Peritoneum: There is no intraperitoneal free air or abdominal ascites. Vasculature: The abdominal aorta is normal in course and caliber. Adenopathy: None. Pelvic viscera: The bladder, and pelvic viscera are unremarkable. Skeletal structures: No destructive osseous lesions are seen. IMPRESSION: 1. Bilateral nephrolithiasis 2. Obstructing 7 mm distal left ureteral calculi 3. No evidence of bowel obstruction. No evidence of free air 09/26/20 09:06 FL KUB Routine FL fluoroscopy <1hr Routine Hospital Course (1) Renal colic on left side: (2) Hx of renal calculi: LEFT URETERAL STONE WITH OBSTRUCTIVE UROPATHY Admitting service notes: Patient has history significant for renal calculi, requiring urological procedures in the past History of cystinuria/cystine kidney stones presents with emesis, with blood cell count of 19,000, creatinine elevated at 1.5 and significant pain in left lower abdominal quadrant/groin Pt does not have any fevers, chills, blood pressure is actually elevated, patient does not appear septic CT abdomen/pelvis: 1. Bilateral nephrolithiasis 2. Obstructing 7 mm distal left ureteral calculi 3. No evidence of bowel obstruction. No evidence of free air UA unremarkable, no bacteria no nitrites, positive for blood Urine culture: Pending 09/26/2020 Status post cystoscopy with left ureteral stent placement Cleared for discharge by urologist Dr. Miramontes Discharged on: Ciprofloxacin 500 mg twice daily [place] Follow-up with Dr. Miramontes in 1 to 2 weeks Follow-up final urine culture results Obstructive uropathy Acute kidney injury Creatinine 1.5-->1.9 on discharge day No problems with urination Status post left ureteral stent placement Hold lisinopril/hydrochlorothiazide, replace with hydralazine 25 mg p.o. twice daily temporarily Repeat BMP on follow-up with PCP this week, resume lisinopril/HCTZ when kidney function is back to baseline Patient advised to take plenty of water, do not take NSAIDs, and follow-up with PCP this week for repeat BMP Patient verbalized understanding and agreement, comfortable with plan of care (3) ELLYN (generalized anxiety disorder): - cont. home buspar (4) Hypertension: - cont. amlodipine, hold lisinopril/HCTZ given JADA (elev. Cr) -Management per above (5) Tobacco use: Currently using Chantix (6) Dyslipidemia: On statin Disposition Discharge to home Follow-up with PCP in 1 week Follow-up with urologist in 1 to 2 weeks Total Time Total Time Spent Total Time Spent (In Minutes): 45 minutes Discharge Plan Discharge Items Patient Disposition: Home - Self-Care Reason For Visit: RENAL COLIC Discharge Diagnosis: Ureteral Stone, Left Activity: Resume your previous activity Lifting: Gradually increase as tolerated Bathing: No limitations Sexual Activity: When tolerated Exercise/Sports: Gradually increase as tolerated Driving/Machine Use: Do not drive while on pain meds Non-emergency contact: Urologist Call non-emergency contact if: you have any medication questions, you have a fever and your temperature is above 101.5 Follow-up/Referrals: Gómez Narayanan MD [Primary Care Provider] - Diet: Regular and Heart Healthy Addtl Attending Provider Instructions: Dr. Miramontes's office (urology - [phone]) will contact you to arrange for appropriate follow up and to schedule your next surgery to treat your stones. Ff up with PCP in 1 week to re-evaluate kidney function. Do not take NSAIDs like Ibuprofen, Naproxen, etc. Pending Studies at Discharge: Yes Studies:: repeat bloodwork (basic metabolic profile) on ff up with PCP in 1 week Stand-Alone Forms: My [employer], Smoking Cessation Medications and DC Order Prescriptions: New hydrocodone-acetaminophen 5-325 mg tablet 1 tab PO Q6H PRN (Reason: pain) Qty: 20 RF: 0 ciprofloxacin HCl [Cipro] 500 mg tablet 500 mg PO BID Qty: 6 RF: 0 hydralazine 25 mg tablet 25 mg PO BID Qty: 30 RF: 0 Continued amlodipine 10 mg Tablet 10 mg PO PM Qty: 0 RF: 0 buspirone 10 mg tablet 10 mg PO BID RF: 0 gabapentin 300 mg capsule 300 mg PO TID RF: 0 rosuvastatin 20 mg tablet 20 mg PO PM RF: 0 Chantix Continuing Month Box 1 mg tablet 1 mg PO BID RF: 0 acetaminophen [Tylenol Extra Strength] 500 mg Tablet 1,500 mg PO Q6H PRN (Reason: Pain) RF: 0 Discontinued lisinopril-hydrochlorothiazide 20-12.5 mg tablet 1 tab PO PM RF: 0 Discharge Orders: Discharge Order (Routine); Ordered 09/26/20 Ordered By: Zia Chowdhury Admission Data Admit Date/Time: 09/25/20 18:53 Attending Provider: Zia Chowdhury Admit Provider: Chinedu Ceballos Primary Care Provider: Gómez Narayanan Other Providers: Chinedu Ceballos ; Sandoval Miramontes Other Interventions: Discharge Summary Assessment (RN) Last Done: 09/26/20 15:09
== END 2020-09-26 15:28 | disposition home or self-care (01) | DRG 660 ==
LOC: ED 15:27 → SUATTDRO 18:53 → OBSVTOIN 18:53 → 2N 18:53 → INTOOBSV 18:53 → 2N 19:52